=== PATIENT | male | born 1945 | race Caucasian/White ===

== ENCOUNTER 2021-06-14 05:58 | Inpatient (IN) ==
--- NOTE | 2021-05-20 09:01 | PAT Medication Instructions ---
Medication Instructions Date of Service May 20, 2021 Home Medications amlodipine 5 mg tablet 10 mg PO QPM atorvastatin 40 mg tablet 80 mg PO QPM furosemide 40 mg tablet 40 mg PO QAM mecobalamin (vitamin B12) 1,000 mcg disintegrating tablet,sublingual 1,000 mcg SL QPM metoprolol tartrate 75 mg tablet 25 mg PO QAM pantoprazole 40 mg tablet,delayed release 40 mg PO QPM aspirin 81 mg tablet,delayed release 81 mg PO QAM cholecalciferol (vitamin D3) 25 mcg (1,000 unit) tablet (Vitamin D3) 25 mcg PO QAM metformin 500 mg tablet 500 mg PO QAM potassium chloride 20 mEq tablet,extended release 20 meq PO QAM ASK your prescriber and surgeon aspirin 81 mg tablet,delayed release 81 mg PO QAM DO NOT take the morning of surgery furosemide 40 mg tablet 40 mg PO QAM cholecalciferol (vitamin D3) 25 mcg (1,000 unit) tablet (Vitamin D3) 25 mcg PO QAM metformin 500 mg tablet 500 mg PO QAM potassium chloride 20 mEq tablet,extended release 20 meq PO QAM Take morning of surgery With a small sip of water, OTHERWISE NOTHING TO EAT OR DRINK AFTER MIDNIGHT: metoprolol tartrate 75 mg tablet 25 mg PO QAM Take evening before surgery amlodipine 5 mg tablet 10 mg PO QPM atorvastatin 40 mg tablet 80 mg PO QPM mecobalamin (vitamin B12) 1,000 mcg disintegrating tablet,sublingual 1,000 mcg SL QPM pantoprazole 40 mg tablet,delayed release 40 mg PO QPM Other Notes If you have any questions please call us at [phone] or [phone] or [phone] or [phone]
--- NOTE | 2021-05-23 13:43 | Anesthesiology Consultation ---
Date of Service May 23, 2021 Assessment & Plan (1) Encounter for pre-operative examination: - most recent cardiology office note. Pt reports upcoming appointment with [facility] [place] 06/09/2021; will attempt to obtain office note. 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 Discussed with Dr. Villatoro who advised nothing further needed from his standpoint. - check BSG am DOS. - heavy ETOH use. Pt denies h/o withdrawal, DTs, seizures. Pt states can be NPO for DOS, denies concerns. Case discussed with Dr. Villatoro who agreed with adding LFTs and coags with PAT testing today. - COVID screening: Per assessment on 05/23/2021: Travel screen negative, no known COVID-19 positive contacts or current COVID-19 related symptoms. Patient vaccinated. Surgeon arranging preop COVID testing, scheduled 06/10/2021 [facility]. Awaiting results. Chart Review Chart Review: Acceptable Risk for Surgery (pending most recent cardiology office note) and Patient seen in Pre Admission Testing Teaching & Discussion Pre-Anesthesia Teaching/Discussion Notes: Instructed NPO after midnight before surgery, except medications with 15 cc of water. Medication instructions provided according to the PAT guidelines. History Surgery Operation Date: 06/14/21 07:30 Proposed Procedures p Laparoscopic Robotic Assisted Radical Retropubic Prostatectomy, Possible Pelvic Lymph Node Dissection, Possible Suprapubic Tube Placement - Jah Paulino MD Height/Weight Height: 5 ft 11 in Weight: 95.6 kg Allergies Allergy/AdvReac Type Severity Reaction Status Date / Time enalapril Allergy Unknown Face/throat Verified 05/20/21 09:38 swelling, dyspnea Penicillins Allergy Unknown Rash Verified 05/20/21 09:38 (childhood rxn) Medications Home Medications Medication Instructions Recorded Confirmed Last Taken amlodipine 5 mg tablet 10 mg PO QPM 08/11/19 05/19/21 Unknown atorvastatin 40 mg tablet 80 mg PO QPM 08/11/19 05/19/21 Unknown furosemide 40 mg tablet 40 mg PO QAM 08/11/19 05/19/21 Unknown mecobalamin (vitamin B12) 1,000 1,000 mcg SL QPM 08/11/19 05/19/21 Unknown mcg disintegrating tablet,sublingual metoprolol tartrate 75 mg tablet 25 mg PO QAM 08/11/19 05/19/21 Unknown pantoprazole 40 mg tablet,delayed 40 mg PO QPM 08/11/19 05/19/21 Unknown release aspirin 81 mg tablet,delayed 81 mg PO QAM 05/19/21 05/19/21 Unknown release cholecalciferol (vitamin D3) 25 25 mcg PO QAM 05/19/21 05/19/21 Unknown mcg (1,000 unit) tablet (Vitamin D3) metformin 500 mg tablet 500 mg PO QAM 05/19/21 05/19/21 Unknown potassium chloride 20 mEq 20 meq PO QAM 05/19/21 05/19/21 Unknown tablet,extended release Past Medical History Medical History (Updated 05/24/21 @ 09:04 by Alesia Mchugh PA-C) Benign prostatic hyperplasia with urinary obstruction CAD (coronary artery disease) stent x1 (10 years ago) GERD (gastroesophageal reflux disease) Controlled, stable per pt Heart attack 10 years ago, Follows with [facility] cardiology (JELLY Hicks) Hyperlipidemia Hypertension controlled, stable per pt 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: "...involving the bones of the right maxillary antrum and extending into the maxilla." Prostate cancer Type 2 diabetes mellitus NIDDM-controlled Patient denies h/o stroke, seizures, heart failure, blood clots or blood transfusions. Exercise / Class Metabolic Activity II 4-5 Yardwork/Stairs/Walk up hill (no CP or SOB with 1 FOS) Past Family History Family History Brother Lung cancer Mother Liver carcinoma Past Surgical History Surgical History (Updated 05/23/21 @ 14:06 by Alesia Mchugh PA-C) History of cardiac cath 10 years ago > stent x1 History of cholecystectomy History of colonoscopy History of herniorrhaphy x2 History of kidney surgery Left-ureteral procedure/patient unsure of additional details > 50 yrs ago History of tonsillectomy Past Anesthesia History No Hx of Anesthesia Complications and No Family Hx of Anesthesia Complications History of PONV No Hx of PONV and Hx of Motion Sickness Social History Smoking Status: Former smoker Do You Dip or Chew Tobacco: No Smoking End Date: QUIT 40 YRS AGO Hx Alcohol Use: Yes Alcohol type: beer alcohol intake frequency: 3 or more drinks per day Alcohol Intake Frequency Comment: 10-15 BEER A DAY Hx Substance Use: No Review of Systems Snoring per patient's , denies witnessed apneas or sleep studies. Patient denies chest pain, shortness of breath, dyspnea on exertion, fever, chills, cough, wheezing, or palpitations. Physical Exam Vital Signs Vitals BP 134/84 P 79 TEMP 99.0 SP02 97% on RA RESP 17 Physical Full cervical extension range of motion without pain Full TMJ range of motion TMD 3.5 finger breaths Mallampati Score 3 Dentition: intact, one missing lower right side tooth; denies chipped or loose tooth, caps/crowns, implants or bridges Lungs: normal respiratory effort. Clear throughout to auscultation, no adventitious breath sounds Cardiac: regular rate and rhythm, no murmurs noted Carotid arteries: negative bruit bilat Extremities: no distal extremity edema Lab Results Anesthesia Preop Results Results Anesthesia Widget: WBC 7.64 K/uL (4.8-10.8) 05/23/21 Hgb 14.1 g/dL (14.0-18.0) 05/23/21 Hct 40.1 % (42-52) L 05/23/21 Plt 244 K/uL (130-400) 05/23/21 Na 135 mmol/L (136-145) L 05/23/21 K 3.5 mmol/L (3.5-5.1) 05/23/21 Cl 101 mmol/L (98-107) 05/23/21 CO2 30 mmol/L (21-32) 05/23/21 BUN 10 mg/dl (7-18) 05/23/21 Creat 1.17 mg/dl (0.6-1.4) 05/23/21 Glucose Level 130 mg/dl (70-99) H 05/23/21 PT 9.8 Seconds (9.0-12.0) 05/23/21 PTT 26.3 Seconds (21.0-31.0) 05/23/21 INR 1.0 (0.9-1.1) 05/23/21 HA1c 6.6 % (4.5-5.6) H 05/23/21 Urine Color Yellow 05/23/21 Urine Appearance Clear (Clear) 05/23/21 Urine pH 5.5 (4.5-7.5) 05/23/21 Urine Specific [place] 1.009 (1.000-1.030) 05/23/21 Urine Protein Negative (Negative) 05/23/21 Urine Glucose (UA) Negative (Negative) 05/23/21 Urine Ketones Negative (Negative) 05/23/21 Urine Blood Trace (Negative) H 05/23/21 Urine Nitrite Negative (Negative) 05/23/21 Urine Bilirubin Negative (Negative) 05/23/21 Urine Urobilinogen Negative (Negative) 05/23/21 Urine Leukocyte Esterase 2+ (Negative) H 05/23/21 Urine WBC (Auto) >30 /hpf (0-5) H 05/23/21 Urine RBC (Auto) 0-4 /hpf (0-4) 05/23/21 Urine Hyaline Casts (Auto) 1-5 /lpf (0-5) 05/23/21 Urine Epithelial Cells (Auto) 0-5 /lpf (0-5) 05/23/21 Urine Bacteria (Auto) Negative (Negative) 05/23/21 Blood Type A Positive 05/23/21 Antibody Screen NEGATIVE 05/23/21 Testing Laboratory Results 05/23/2021: AST 29 ALT 46 Alk phos 123 Electrocardiogram Date: 05/23/21 Normal sinus rhythm, rate 72 bpm. Left axis deviation Diffuse Minor Nonspecific T wave abnormality Prolonged QT Abnormal ECG No previous ECGs available Confirmed by Jc Odell. Chest X-Ray Date: 05/23/21 No acute process. Echocardiogram Date: 06/02/19 Left ventricular size is normal. Mild cLVH. OVerall left ventricular function is normal. EF 60-65%. Right atrium mildly enlarged. Grade I diastolic dysfunction. No significant valvular dysfunction. Other Testing Face CT 05/16/2021: IMPRESSION: 1. CT findings most characteristic of Paget's disease involving the bones of the right maxillary antrum and extending into the maxilla. This accounts for the increased activity on bone scan. 2. Chronic right maxillary sinusitis with no abnormal enhancement. 3. Mild chronic bilateral ethmoid sinusitis as well.
[2021-06-14] MEDS ORDERED: LACTATED RINGER'S 1,000 ML IV SCH (06:00)
[2021-06-14] MEDS ORDERED: HEPARIN SOD 5,000 UNIT/0.5 ML VIAL SQ SCH (06:00)
[2021-06-14] MEDS ORDERED: LR 15ML/HR IV SCH (06:00)
[2021-06-14] MEDS ORDERED: NEOSTIGMINE METHYLSULFATE 1 MG/ML 10ML VIAL ONE (06:27)
[2021-06-14] MEDS ORDERED: MIDAZOLAM HCL 1 MG/ML 2ML VIAL ONE ×2 (06:27→06:48)
[2021-06-14] MEDS ORDERED: GLYCOPYRROLATE 0.2 MG/ML VIAL ONE (06:27)
[2021-06-14] MEDS ORDERED: HYDROmorphone INJ 2 MG/ML SYR/VIAL ONE (06:27)
[2021-06-14] MEDS ORDERED: ONDANSETRON INJ 2 MG/ML 2 ML VIAL ONE (06:27)
[2021-06-14] MEDS ORDERED: fentaNYL citrate 100 MCG/2 ML VIAL ONE (06:27)
[2021-06-14] MEDS ORDERED: ROCURONIUM BROMIDE 10 MG/ML 5 ML VIAL IV ONE ×6 (06:27→08:25)
[2021-06-14] MEDS ORDERED: DEXAMETHASONE SOD INJ 4 MG/ML VIAL ONE (06:27)
[2021-06-14] MEDS ORDERED: PROPOFOL IV EMULSION 10 MG/ML 20 ML VIAL IV ONE ×2 (06:27→08:25)
[2021-06-14] MEDS ORDERED: ePHEDrine sulfate 50 MG/ML AMP IV PRN (06:46)
[2021-06-14] MEDS ORDERED: fentaNYL citrate 100 MCG/2 ML VIAL IV PRN (06:46)
[2021-06-14] MEDS ORDERED: ATROPINE SULFATE 0.1 MG/ML 10ML SYR IV PRN (06:46)
[2021-06-14] MEDS ORDERED: ONDANSETRON INJ 2 MG/ML 2 ML VIAL IV PRN ×2 (06:46→18:09)
[2021-06-14] MEDS ORDERED: BUPIVACAINE 0.5 % 5 MG/1 ML MPF 30ML VIAL ONE (07:07)
--- NOTE | 2021-06-14 07:25 | Urology Progress Note ---
Date of Service June 14, 2021 Assessment & Plan (1) Prostate cancer: Plan: Gl 3+4=7 and 3+3=6 prostate ca all right sided PSA 10.2 23g prostate plan for RARP today - risks, benefits, and expectations reviewed Subjective Pt with prostate cancer - presenting now for definitive treatment in the form of robotic prostatectomy Physical Exam Constitutional: well developed and well nourished Neck: neck nontender Respiratory: normal respiratory effort; no respiratory distress and does not use accessory muscles Cardiovascular: Rate/Rhythm: regular rate Vessels: radial pulses present Extremities: no edema Gastrointestinal (Abdomen): Inspection/Auscultation: abdomen normal to inspection Percussion/Palpation: abdomen soft; abdomen nontender and no guarding Musculoskeletal: Head/Neck/Chest: normocephalic and head atraumatic Extremities: extremities normal to inspection Skin: no rashes and no lesions Trauma: no evidence of skin trauma Neurologic: awake; not obtunded Speech / Cognition: normal speech Motor/Sensory: no tremor Psychiatric: Orientation: alert and oriented x 3 Genitourinary: no CVA tenderness Lymphatic: no lymphadenopathy Results & Data ([facility]) Vital Signs (Past 12 Hours) Vital Signs Temp Pulse Resp BP Pulse Ox 06/14/21 06:16 36.6 C 69 18 159/87 H 97 PG Care Time/CCT Total # of Minutes Spent Total Time Spent with Patient: Total time spent is greater than 50% in coordination of care (as documented) at patient's floor/unit and/or counseling patient: Coding Level of Care Code None Diagnoses Prostate cancer C61
[2021-06-14] MEDS ORDERED: ceFAZolin 3000MG/72.5 ML BAG IV ONE (07:36)
[2021-06-14] MEDS ORDERED: LABETALOL HCL IV 5 MG/ML 20ML IV ONE ×3 (08:31→09:17)
[2021-06-14] MEDS ORDERED: SURGICEL ABSORB HEMOSTAT 2IN X 14IN TOP ONE (08:53)
[2021-06-14] MEDS ORDERED: FLOSEAL HEMOSTATIC MATRIX 10ML TOP ONE (09:30)
[2021-06-14] MEDS ORDERED: SUGAMMADEX SODIUM 200 MG/2 ML VIAL IV ONE (09:44)
[2021-06-14] MEDS ORDERED: KETOROLAC 30 MG/ML VIAL ONE (10:29)
--- NOTE | 2021-06-14 11:07 | Operative Report ---
PG Post Operative Report Pre & Post Diagnosis Operation Date: 06/14/21 07:30 Pre-Op Diagnosis: Prostate Cancer Post-Op Diagnosis: Prostate Cancer I identified the patient and participated in the time-out.: Yes Procedure Operation Date: 06/14/21 07:30 Actual Procedures p Laparoscopic Robotic Assisted Radical Retropubic Prostatectomy, Possible Open, Pelvic Lymph Node Dissection(Not Applicable) - Jah Paulino MD Surgeon Amos Paulino MD Photographer Apprentice Lithographic Lisa Lang Estimated Blood Loss 100 Findings Consistent with Post-Op Diagnosis Specimens 1. Periprostatic fat 2. Prostate and seminal vesicles 3. Left pelvic lymph nodes 4. Right pelvic lymph nodes Description of Procedure The patient was identified in the preoperative holding area, appropriate informed consents were reviewed and completed, and he was transported to the operating suite. Subcutaneous heparin was administered in the pre-operative hol ding area. Upon arrival in the operating suite, he received appropriate antibiotics and general anesthesia. He was positioned in dorsal lithotomy, a B&O suppository was inserted after digital rectal exam, and he was prepped and draped in standard fashion. A Garner catheter was inserted in the sterile field. A Veress needle was passed per umbilicus with uniform insufflation of the abdomen to 15mmHg. He was placed in steep Trendelenburg position. A periumbilical incision was then made to accommodate a 12mm Visiport with 10mm 0degree laparoscope. Inspection of the abdomen was carried out, and there was no evidence of traumatic entry or injury secondary to the Veress needle. After confirming a clear anterior abdominal wall, ports were subsequently placed in standard robotic prostatectomy fashion without incident. To begin the robotic portion of the case, the left lateral aspect of the sigmoid was mobilized off of the left pelvic side wall to allow the pouch of Harley to be appropriately visualized. I then made an incision in the pouch of Harley, overlying the seminal vesicles. Both SVs as well as the ampullae of the vasa were entirely dissected, with the vasa transected 3cm from the prostate. The medial umbilical ligaments were then controlled with bipolar electrocautery just inferior to the umbilicus. Following cauterization, they were divided utilizing monopolar cautery. A peritoneal incision was carried from this location to the medial aspect of the internal inguinal rings bilaterally with care to avoid opening through the ring. This incision was concluded when the vas deferens was reached. Dissection of the bladder and prostate off of the posterior aspect of the pubic arch was completed allowing full visualization of the prostate. The fat overlying the prostate was removed en bloc and passed off the table as a specimen labeled "periprostatic fat". The endopelvic fascia was cleared during this portion of the procedure, and subsequently opened - first on the right and then the left. The incision through the endopelvic fascia began near the prostate-bladder junction and was carried to the apex with extreme care to preserve all lateral levator musculature as well as the periurethral musculature and sphincter complex. I additionally preserved the puboprostatic ligaments. I then controlled the DVC with a 3-0 V-lock suture in overlapping/figure of 8 fashion. The lymph node dissection was then conducted. External iliac vessels were identified on the pelvic side wall. The packet of fat and lymphatic tissue that resides just under the iliac vein was elevated and off of the vein with a split and roll technique. The packet was dissected laterally to the circumflex vein and distally to the obturator nerve which was preserved. The proximal aspect of the packet was carried towards the bifurcation of the iliac vessels. A combination of monopolar and bipolar cautery were used to assist with control. After completing the dissection on both sides, the packets were collected and passed off of the table as specimens labeled "pelvic lymph nodes". My attention then returned to the prostate, with identification of the bladder neck aided by gentle traction on the Garner catheter and lateral to medial pressure at the presumed level of the bladder neck with the robotic instruments. An anterior cystotomy was made, the Garner balloon deflated and the catheter guided through the incision to allow anterior retraction. I attempted to preserve maximal bladder neck musculature as I circumferentially dissected around the bladder neck. After incision through the posterior aspect of the mucosa, the dissection was carried through detrusor muscle until the bilateral ampullae of the vasa were identified. The previously dissected vasa and SVs were brought through the incision and used to elevated the prostate anteriorly. A posterior plane behind the prostate was then developed - splitting Denonvilliers's fascia. This dissection was carried as far as possible towards the apex as well as far as possible laterally. An incision in the lateral prostatic fascia was then made bilaterally to facilitate control of the vascular pedicles and preservation of the nerve bundles. Vasculature running along the posterior/lateral aspect of the prostate was preserved as well as the tissue containing the nerves. I was more cautious on the right than the left based on his preoperative pathology, however I suspect the nerve sparing is relatively equivalent bilaterally. The pedicles were then controlled with a series of Weck clips. The apical attachments of the prostate were remaining at that stage. The DVC was divided after control with bipolar cautery over the prostate. Continuous inspection from anterior and lateral views allowed me to closely follow the apical contour of the prostate and maximally preserve urethral length and tissue. The prostate was entirely freed at that point, and collected in an EndoCatch bag before being moved out of the field of vision. Hemostasis was confirmed and anastomosis of the bladder and urethra was completed utilizing a double armed V- Lock stitch. A new Garner catheter was inserted and the anastomosis tested with irrigation. There was no evidence of leak. A viviana style stitch was placed bilaterally to functionally marsupialize the area of the lymph node dissection. The robot was undocked, the specimen extracted through expansion of the robin- umbilical camera port. The fascia was closed with a series of 0-PDS figure of 8 stitches. The right publisher assistant port was closed in two layers - with a figure of 8 0-Vicryl to reapproximate the fascia followed by 4-0 Monocryl to close the skin. Monocryl was used to close all other skin incisions. All wounds were dressed with Dermabond. The case was concluded and the patient taken to the PACU in stable condition. Lisa Lang assisted from incision to closure. I attest to the content of the Intraoperative Record and any orders documented therein. Any exceptions are noted below.
[2021-06-14] MEDS ORDERED: chlordiazePOXIDE ALCOHOL WITHDRAWL 25MG PO STA (11:09)
[2021-06-14 11:26] LABS: Basophils # (auto) 0.02 K/uL (0-0.2); Basophils % (auto) 0.2 %; Eosinophils # (auto) 0.05 K/uL (0-0.5); Eosinophils % (auto) 0.4 %; Hemoglobin 13.2 g/dL (14.0-18.0); Immature Granulocytes # (auto) 0.01 K/uL (0.00-0.02); Immature Granulocytes % (auto) 0.1 %; Lymphocytes % (auto) 9.7 %; Mean Corpuscular Hemoglobin 33.3 pg (25-34); Mean Corpuscular Volume 98.5 fL (80-100); Mean Platelet Volume 9.8 fL (7.4-10.4); Monocytes # (auto) 0.18 K/uL (0.11-0.59); Monocytes % (auto) 1.6 %; Neutrophils # (auto) 9.96 K/uL (1.4-6.5); Platelet Count 263 K/uL (130-400); RDW Coefficient of Variation 12.8 % (11.5-14.5); RDW Standard Deviation 46.6 fL (36.4-46.3); Red Blood Count 3.96 M/uL (4.7-6.1); White Blood Count 11.32 K/uL (4.8-10.8)
[2021-06-14 11:37] LABS: Mean Corpuscular Hgb Conc 33.8 g/dL (32-36)
[2021-06-14 11:45] LABS: BUN Creatinine Ratio 8.5 (10-20); Calcium 9.1 mg/dl (8.5-10.1); Creatinine Clr Calc Pharmacy 51.2 ml/min; Est GFR (African American) 53.6 ml/min; Est GFR (Non-African American) 46.3 ml/min; Potassium 3.6 mmol/L (3.5-5.1)
--- NOTE | 2021-06-14 12:16 | Anesthesiology Progress Note ---
Date of Service June 14, 2021 Anesthesia Post Procedure Vital Signs Vital Signs: Temp Pulse Resp BP Pulse Ox 06/14/21 12:05 65 16 125/82 92 06/14/21 11:55 62 14 126/77 94 06/14/21 11:45 69 13 135/81 94 06/14/21 11:35 98.2 F 74 21 127/83 93 06/14/21 11:25 67 11 L 138/86 91 06/14/21 11:15 74 17 152/81 H 93 06/14/21 11:05 78 16 132/92 90 06/14/21 10:57 97.2 F L 85 18 173/89 H 96 06/14/21 06:16 97.9 F 69 18 159/87 H 97 Transfer of Care Handoff Completed per policy Notes Mental Status: alert / awake / arousable and participated in evaluation Patient Amnestic to Procedure: Yes Nausea / Vomiting: adequately controlled Pain: adequately controlled Airway Patency, RR, SpO2: stable & adequate BP & HR: stable & adequate Hydration State: stable & adequate Anesthetic Complications: no major complications apparent and Pt Satisfied with anesthetic care
[2021-06-14] MEDS ORDERED: MoRPHine SULFATE 4 MG/ML 1 ML CARP\\VIAL IV PRN (18:09)
[2021-06-14] MEDS ORDERED: MoRPHine SULFATE 2 MG/ML CARP IV PRN (18:09)
[2021-06-14] MEDS ORDERED: PHARMACY GLYCEMIC MGMT CONSULT PRN (18:09)
[2021-06-14] MEDS ORDERED: chlordiazePOXIDE HCl 25 MG CAP PO SCH (18:09)
[2021-06-14] MEDS ORDERED: oxyCODONE HCL IR 5 MG TAB (IMMEDIATE RELEASE) PO PRN ×2 (18:09)
[2021-06-14] MEDS ORDERED: ACETAMINOPHEN 325 MG TAB PO PRN (18:09)
[2021-06-14] MEDS ORDERED: LORazepam 1 MG TAB PO PRN (18:09)
[2021-06-14] MEDS: LACTATED RINGER'S 1,000 ML IV SCH (18:47)
[2021-06-14] MEDS ORDERED: MULTI-VITAMIN INFUSION 10 ML, THIAMINE HCL 100 MG, FOLIC ACID 1 MG in SODIUM CHLORIDE 0... IV ONE (19:00)
[2021-06-14] MEDS: CHLORDIAZEPOXIDE 25MG STARTING DOSE PO SCH ×3 (19:35→23:58)
[2021-06-14] MEDS: ceFAZolin 2000MG 2,000 MG/15 ML SYR IV SCH (19:35)
[2021-06-14] MEDS: HEPARIN SOD 5,000 UNIT/0.5 ML VIAL SQ SCH (19:40)
[2021-06-14] MEDS ORDERED: LANTUS PER UNIT CHARGE SQ ONE (20:45)
[2021-06-14] MEDS ORDERED: amLODIPine BESYLATE 5 MG TAB PO SCH (21:00)
[2021-06-14] MEDS ORDERED: ATORVASTATIN 40 MG TAB PO SCH (21:00)
[2021-06-14] MEDS ORDERED: PANTOprazole 40 MG TAB PO SCH (21:00)
[2021-06-14] MEDS ORDERED: CYANOCOBALAMIN 500 MCG TABLET (VITAMIN B-12) PO SCH (21:00)
--- NOTE | 2021-06-14 21:11 | Pharmacy Report ---
Pharmacy Glycemic Short Note 2 - Date of Service June 14, 2021 - Glycemic Short BSG Results (Last 24 hours): 06/14/21 06/14/21 06/14/21 06:20 11:01 11:17 Glucose 202 H POC Glucose 126 H 197 H 06/14/21 06/14/21 18:37 20:35 Glucose POC Glucose 181 H 159 H OUTPATIENT ANTIDIABETIC REGIMEN: * Metformin * HbA1c 6.6% ASSESSMENT: * 75 yo M with well controlled T2DM on a single oral agent admitted 06/14 and s/p prostatectomy. * Will initiate slightly tighter than moderate stress estimate of Novolog 2nd dexamethasone and add an overnight check * Will intiate Lantus at 0.2 units/kg x1 dose PLAN FOR INPATIENT GLYCEMIC CONTROL: * Hold outpatient oral diabetes medications * Basal insulin * Lantus 20 units SQ x1 * Bolus insulin * NovoLog per scale ACHS or Q6hrs while NPO * Goal Range: Low 110 mg/dL - High 140 mg/dL * Correction Factor: 20 mg/dL/unit * Nutritional / Prandial insulin per carb ratio of 1 unit per 8 grams CHO consumed
[2021-06-14] MEDS: INSULIN ASPART 100 UNITS/ML VIAL SC SCH (21:13)
[2021-06-15] MEDS ORDERED: INSULIN ASPART 100 UNITS/ML VIAL SC ONE (02:00)
[2021-06-15] MEDS: ceFAZolin 2000MG 2,000 MG/15 ML SYR IV SCH (03:04)
[2021-06-15] MEDS: LACTATED RINGER'S 1,000 ML IV SCH (03:27)
[2021-06-15] MEDS: CHLORDIAZEPOXIDE 25MG STARTING DOSE PO SCH (05:33)
[2021-06-15 07:47] LABS: Basophils # (auto) 0.04 K/uL (0-0.2); Basophils % (auto) 0.4 %; Eosinophils % (auto) 1.9 %; Hematocrit (blood only) 32.2 % (42-52); Hemoglobin 10.7 g/dL (14.0-18.0); Immature Granulocytes # (auto) 0.03 K/uL (0.00-0.02); Immature Granulocytes % (auto) 0.3 %; Lymphocytes # (auto) 0.67 K/uL (1.2-3.4); Lymphocytes % (auto) 6.3 %; Mean Corpuscular Hemoglobin 32.4 pg (25-34); Mean Corpuscular Hgb Conc 33.2 g/dL (32-36); Mean Corpuscular Volume 97.6 fL (80-100); Mean Platelet Volume 9.5 fL (7.4-10.4); Monocytes # (auto) 0.56 K/uL (0.11-0.59); Monocytes % (auto) 5.3 %; Neutrophils % (auto) 85.8 %; Platelet Count 185 K/uL (130-400); RDW Coefficient of Variation 12.8 % (11.5-14.5); RDW Standard Deviation 45.8 fL (36.4-46.3)
--- NOTE | 2021-06-15 08:44 | Urology Progress Note ---
Date of Service June 15, 2021 Assessment & Plan (1) Prostate cancer: Plan: Postop day #1 status post prostatectomy Progressing appropriately Advance diet Ambulate Hep-Lock IV fluid Garner training DC home later this morning Admission and Anticipated Discharge Date Admission Date: June 14, 2021 Subjective No major issues overnight Had a small amount of leakage from his periumbilical incision but no other issues Pain is well controlled Ready for diet Somewhat low urine output initially but this seems to be improving and his urine has cleared appropriately Physical Exam Physical Exam: Small amount of ecchymosis around the right lateral port and the midline port but otherwise everything appears appropriate Clear urine Results & Data ([facility]) Vital Signs (Past 12 Hours) Vital Signs Temp Pulse Resp BP Pulse Ox 06/15/21 07:11 36.9 C 68 18 122/74 95 06/15/21 03:04 36.9 C 77 20 141/72 H 92 06/14/21 22:25 36.5 C 76 18 159/73 H 91 PG Care Time/CCT Total # of Minutes Spent Total Time Spent with Patient: Total time spent is greater than 50% in coordination of care (as documented) at patient's floor/unit and/or counseling patient: Coding Level of Care Code 35585 Subseq Hosp Care Lvl 2 Diagnoses Prostate cancer C61
[2021-06-15 08:52] LABS: BUN Creatinine Ratio 11.7 (10-20); Calcium 8.2 mg/dl (8.5-10.1); Est GFR (African American) 90.5 ml/min; Est GFR (Non-African American) 78.1 ml/min; Potassium 3.6 mmol/L (3.5-5.1)
[2021-06-15] MEDS ORDERED: POTASSIUM CHLORIDE CRTAB 20 MEQ TABCR PO SCH (09:00)
[2021-06-15] MEDS ORDERED: CHOLECALCIFEROL 1,000 UNITS 25 MCG TAB PO SCH (09:00)
[2021-06-15] MEDS ORDERED: FUROSEMIDE 40 MG TAB PO SCH (09:00)
[2021-06-15] MEDS ORDERED: METOPROLOL TARTRATE 25 MG TAB PO SCH (09:00)
[2021-06-15] MEDS: HEPARIN SOD 5,000 UNIT/0.5 ML VIAL SQ SCH (09:30)
[2021-06-15] MEDS: INSULIN ASPART 100 UNITS/ML VIAL SC SCH ×2 (09:33→13:18)
--- NOTE | 2021-06-15 12:06 | Pharmacy Report ---
Pharmacy Glycemic Short Note 2 - Date of Service June 15, 2021 - Glycemic Short BSG Results (Last 24 hours): 06/14/21 06/14/21 06/15/21 18:37 20:35 01:32 Glucose POC Glucose 181 H 159 H 136 H 06/15/21 06/15/21 06/15/21 07:27 08:16 11:54 Glucose 116 H POC Glucose 110 H 89 OUTPATIENT ANTIDIABETIC REGIMEN: * Metformin * HbA1c 6.6% ASSESSMENT: 06/15/21 * Patient's BSGs yesterday were 197-181-159 mg/dL and fasting today is 110 mg/dL. * Patient received 21 units of insulin yesterday with 20 units of basal and 1 units of bolus. * Patient POD 1. * Hold Lantus for now as BSGs trending downwards. * Novolog weight-based stress of 2. Background * 75 yo M with well controlled T2DM on a single oral agent admitted 06/14 and s/p prostatectomy. * Will initiate slightly tighter than moderate stress estimate of Novolog 2nd dexamethasone and add an overnight check * Will intiate Lantus at 0.2 units/kg x1 dose PLAN FOR INPATIENT GLYCEMIC CONTROL: * Hold outpatient oral diabetes medications * Basal insulin- hold * Bolus insulin * NovoLog per scale ACHS or Q6hrs while NPO * Goal Range: Low 110 mg/dL - High 140 mg/dL * Correction Factor: 25 mg/dL/unit * Nutritional / Prandial insulin per carb ratio of 1 unit per 8 grams CHO consumed Recommendations for Discharge * HbA1C at goal recommend continuing outpatient regimen
[2021-06-15] MEDS ORDERED: CHLORDIAZEPOXIDE 25MG 2ND DOSE PO SCH (14:00)
--- NOTE | 2021-06-15 14:08 | Discharge Summary ---
Date of Service June 15, 2021 Admission HPI Per Admitting Provider Pt with prostate cancer - presenting now for definitive treatment in the form of robotic prostatectomy Admission Exam Per Admitting Provider Physical Exam Constitutional: well developed and well nourished Neck: neck nontender Respiratory: normal respiratory effort; no respiratory distress and does not use accessory muscles Cardiovascular: Rate/Rhythm: regular rate Vessels: radial pulses present Extremities: no edema Gastrointestinal (Abdomen): Inspection/Auscultation: abdomen normal to inspection Percussion/Palpation: abdomen soft; abdomen nontender and no gu arding Musculoskeletal: Head/Neck/Chest: normocephalic and head atraumatic Extremities: extremities normal to inspection Skin: no rashes and no lesions Trauma: no evidence of skin trauma Neurologic: awake; not obtunded Speech / Cognition: normal speech Motor/Sensory: no tremor Psychiatric: Orientation: alert and oriented x 3 Genitourinary: no CVA tenderness Lymphatic: no lymphadenopathy Principal Diagnosis Prostate cancer Discharge Exam Small amount of ecchymosis around the right lateral port and the midline port but otherwise everything appears appropriate Clear urine Discharge Data Allergies Allergy/AdvReac Type Severity Reaction Status Date / Time enalapril Allergy Unknown Face/throat Verified 06/14/21 06:14 swelling, dyspnea Penicillins Allergy Unknown Rash Verified 06/14/21 06:14 (childhood rxn) Procedures Performed Operation Date: 06/14/21 07:30 Actual Procedures p Laparoscopic Robotic Assisted Radical Retropubic Prostatectomy, Possible Open, Pelvic Lymph Node Dissection(Not Applicable) - Jah Paulino MD Hospital Course (1) Prostate cancer: Postop day #1 status post prostatectomy Progressing appropriately Advance diet Ambulate Hep-Lock IV fluid Garner training DC home later this morning Patient reassessed at 1100. Doing well, he feels ready for discharge to home. Tolerated regular diet this AM. Nurse expressed concern of unsteady gait/ambulation this AM. He does not use any assistive device at home. PT consult ordered - appreciate recommendations. PT evaluated patient this afternoon - patient ambulated without concerns, okay for discharge to home today - orders placed. Expected clinical course reviewed, all questions answered. Follow-up appointments in place. Total Time Total Time Spent Total Time Spent (In Minutes): 29 Discharge Plan Discharge Items Patient Disposition: Home - Self-Care Reason For Visit: Prostate Cancer Discharge Diagnosis: Prostate Cancer Activity: Per Instructions section Lifting: No more than 25 pounds Bathing Comment: Okay to shower after discharge, no tub bath or soaking Sexual Activity: Wait until after follow-up appointment Exercise/Sports: Wait until after follow-up appointment Driving/Machine Use: No driving while taking prescription medication Non-emergency contact: Surgeon Call non-emergency contact if: your pain is worsening, your pain is unusual for you, you have a fever, your temperature is above 101, your wound has increased redness, your wound has increased drainage and your wound pain has increased Follow-up/Referrals: Jah Paulino MD [Physician] - 06/29/21 1:30 pm (Post op appointment with Dr. Paulino) Shanna Santillan MD [Primary Care Provider] - Urology,Nurse [FAKE FOR SCHEDULES] - 06/20/21 9:00 am (Voiding trial with nursing) Diet: Carb Consistent or DM2 Addtl Attending Provider Instructions: Please take all medications as prescribed and keep all follow-ups as scheduled. Please call our office at [phone] with any questions, concerns or need to reschedule appointments for any reason. We are happy to assist you. Your voiding trial to remove Garner catheter is scheduled on 06/20 at 9:00 am. Your post-op appointment with Dr. Paulino is scheduled on 06/29 at 1:30 pm. We have sent an antibiotic to your pharmacy of choice. Please begin antibiotic as prescribed the day BEFORE your scheduled voiding trial at [facility]. Please continue antibiotic every 12 hours through the day AFTER your voiding trial. Activity: We recommend having someone with you for the first few days after surgery to help care for you. For the first 2 weeks after surgery, we would like you to get up and walk around your house. However, we recommend limit physical activity that would increase your heart rate. This will allow your body to rest and heal. Take naps if you feel tired. Don't lift anything heavier than 10 pounds, mow the law or ride a bicycle until your follow-up appointment. Please avoid long car rides. Home Care: Unless directed otherwise, drink 6 to 8 glasses of water a day (enough to keep your urine light colored). This will also help keep a healthy flow of urine. We recommend using a stool softener for the first two weeks to avoid constipation. Garner Catheter or Suprapubic Catheter care: Keep the catheter well secured with either a leg back or leg strap with large bag. Empty your bag when it's about half full. You may notice some blood in the bag. This is normal after surgery and while the catheter is in place. Use mild soap (such as Dove or Dial) and water to wash the catheter and the head of your penis daily, or more frequently if needed. Return to your normal diet, we encourage good protein intake to promote healing. You may shower as normal. Please avoid tub baths or soaking until catheter removed and incisions well healed. Wearing sweat pants while you have the catheter is recommended, they will be more comfortable. Follow-up Your follow up appointments for having your catheter removed, and follow up with your physician should already be scheduled. If you have any questions regarding this, please contact our office. Your final pathology report will be discussed at your physician follow-up appointment. Call [facility] at [phone] right away if you have any of the following: Chest pain or trouble breathing (call [phone] or go to the hospital) Fever of 101F or higher, uncontrolled vomiting Heavy bleeding, clots, or bright red blood from the catheter Catheter that falls out or stops draining Foul-smelling discharge from your catheter Redness, swelling, warmth, or increased pain at your incision site Drainage, pus, or bleeding from your incision Pending Studies at Discharge: Yes Studies:: Pathology Stand-Alone Forms: My [facility] Rocket Raise, Smoking Cessation Medications and DC Order Prescriptions: New docusate sodium [Colace] 100 mg capsule 100 mg PO BID Qty: 60 RF: 0 oxycodone-acetaminophen [Percocet] 5-325 mg tablet 1 tab PO TID PRN (Reason: pain) Qty: 10 RF: 0 sulfamethoxazole-trimethoprim [Bactrim] 400-80 mg tablet 1 tab PO BID 3 Days Qty: 6 RF: 0 Continued atorvastatin 40 mg tablet 80 mg PO QPM RF: 0 furosemide 40 mg tablet 40 mg PO QAM RF: 0 amlodipine 5 mg tablet 10 mg PO QPM RF: 0 metoprolol tartrate 75 mg tablet 25 mg PO QAM RF: 0 mecobalamin (vitamin B12) 1,000 mcg tablet,disintegrating 1,000 mcg SL QPM RF: 0 pantoprazole 40 mg tablet,delayed release (DR/EC) 40 mg PO QPM RF: 0 metformin 500 mg Tablet 500 mg PO QAM RF: 0 aspirin [Aspir-81] 81 mg Tablet,Delayed Release (Dr/Ec) 81 mg PO QAM RF: 0 cholecalciferol (vitamin D3) [Vitamin D3] 25 mcg (1,000 unit) Tablet 25 mcg PO QAM RF: 0 potassium chloride 20 mEq Tablet Extended Release 20 meq PO QAM RF: 0 Discharge Orders: Discharge Order (Routine); Ordered 06/15/21 Ordered By: Tiesha Virk/Other Patient Handouts: Emptying and Cleaning Your ..., Discharge Instructions Caring for ... Admission Data Admit Date/Time: 06/14/21 11:09 Attending Provider: Jah Paulino Admit Provider: Jah Paulino Primary Care Provider: Shanna Santillan Other Interventions: Discharge Summary Assessment (RN) Last Done: 06/15/21 13:42 Coding Level of Care Code D/C DAY MANAGEMENT <30 MINS Diagnoses Prostate cancer C61
[2021-06-16] MEDS ORDERED: PNEUMOCOCCAL Polysaccharide Vaccine 25mcg/0.5mL vial/Syr IM ONE (09:00)
[2021-06-16] MEDS ORDERED: CHLORDIAZEPOXIDE 10MG 3RD DOSE PO SCH (14:00)
[2021-06-17] MEDS ORDERED: chlordiazePOXIDE HCl 5 MG CAP PO SCH (11:15)
[2021-06-17] MEDS ORDERED: CHLORDIAZEPOXIDE 5MG 4TH DOSE PO SCH (18:00)
--- NOTE | 2021-06-21 07:54 | History & Physical Report ---
Date of Service June 21, 2021 Assessment & Plan (1) Prostate cancer: Plan: Prostate ca - presented for RALP w/ LND Admission and Anticipated Discharge Date Admission Date: June 14, 2021 History of Present Illness Primary Care Provider: Shanna Santillan MD H and P completed the day of surgery was listed under "progress note" - in summary, the patient presented for robotic prostatectomy Allergies Allergy/AdvReac Type Severity Reaction Status Date / Time enalapril Allergy Unknown Face/throat Verified 06/20/21 09:22 swelling, dyspnea Penicillins Allergy Unknown Rash Verified 06/20/21 09:22 (childhood rxn) Home Medications Medication Instructions Recorded Confirmed Type amlodipine 5 mg tablet 10 mg PO QPM 08/11/19 06/20/21 History atorvastatin 40 mg tablet 80 mg PO QPM 08/11/19 06/20/21 History furosemide 40 mg tablet 40 mg PO QAM 08/11/19 06/20/21 History mecobalamin (vitamin B12) 1,000 1,000 mcg SL QPM 08/11/19 06/20/21 History mcg disintegrating tablet,sublingual metoprolol tartrate 75 mg tablet 25 mg PO QAM 08/11/19 06/20/21 History pantoprazole 40 mg tablet,delayed 40 mg PO QPM 08/11/19 06/20/21 History release aspirin 81 mg tablet,delayed 81 mg PO QAM 05/19/21 06/20/21 History release cholecalciferol (vitamin D3) 25 25 mcg PO QAM 05/19/21 06/20/21 History mcg (1,000 unit) tablet (Vitamin D3) metformin 500 mg tablet 500 mg PO QAM 05/19/21 06/20/21 History potassium chloride 20 mEq 20 meq PO QAM 05/19/21 06/20/21 History tablet,extended release docusate sodium 100 mg capsule 100 mg PO BID #60 cap 06/15/21 06/20/21 Rx (Colace) oxycodone-acetaminophen 5 mg-325 1 tab PO TID PRN #10 tab 06/15/21 06/20/21 Rx mg tablet (Percocet) Past Med/Surg History Medical History Benign prostatic hyperplasia with urinary obstruction CAD (coronary artery disease) stent x1 (10 years ago) GERD (gastroesophageal reflux disease) Controlled, stable per pt Heart attack 10 years ago, Follows with [facility] cardiology (JELLY Hicks) Hyperlipidemia Hypertension controlled, stable per pt 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: "...involving the bones of the right maxillary antrum and extending into the maxilla." Prostate cancer Type 2 diabetes mellitus NIDDM-controlled Surgical History History of cardiac cath 10 years ago > stent x1 History of cholecystectomy History of colonoscopy History of herniorrhaphy x2 History of kidney surgery Left-ureteral procedure/patient unsure of additional details > 50 yrs ago History of tonsillectomy Family History Brother Lung cancer Mother Liver carcinoma Social History Smoking Status: Former smoker Second Hand Exposure: No; Hx Alcohol Use: Yes Alcohol type: beer Hx Substance Use: No Preferred Language: Kiswahili Communication Ability: Effective Chain Mender Required: No Beliefs That Will Affect Care: None marital status: Current Living Situation: Spouse and Family Feels Safe at Home: No Assistive Devices: None Physical Exam Constitutional: well developed and well nourished Neck: neck nontender Respiratory: normal respiratory effort; no respiratory distress and does not use accessory muscles Cardiovascular: Rate/Rhythm: regular rate Vessels: radial pulses present Extremities: no edema Gastrointestinal (Abdomen): Inspection/Auscultation: abdomen normal to inspection Percussion/Palpation: abdomen soft; abdomen nontender and no guarding Musculoskeletal: Head/Neck/Chest: normocephalic and head atraumatic E xtremities: extremities normal to inspection Skin: no rashes and no lesions Trauma: no evidence of skin trauma Neurologic: awake; not obtunded Speech / Cognition: normal speech Motor/Sensory: no tremor Psychiatric: Orientation: alert and oriented x 3 Genitourinary: no CVA tenderness Lymphatic: no lymphadenopathy Code Status & VTE Plan VTE Prophylaxis Plan VTE Prophylaxis will be ordered: Yes
== END 2021-06-15 14:57 | disposition home or self-care (01) | DRG 708 ==
LOC: ASU 05:58 → PACUINP 11:09 → 3N 18:42 → 3E 20:18